=== PATIENT | male | born 1980 | race Caucasian/White ===

== ENCOUNTER 2023-05-15 10:49 | Emergency (ER) | payer OTHER ==
[~2023-05-15] VITALS: Ht 170.2 cm; Wt 86.2 kg
[2023-05-15 11:00] VITALS: BP_SYST 116; PULSE 96; RESP 20; TEMP 98; O2SAT 100
[2023-05-15] MEDS ORDERED: IBUPROFEN 600 MG TABLET PO ONE (11:00)
[2023-05-15] MEDS ORDERED: HYDROcodone/ACETAMIN 10-325 MG TAB PO ONE (11:00)
[2023-05-15] MEDS ORDERED: LIDOCAINE 1%, 20 ML MDV 20 ML ONE ×2 (11:30→11:31)
[2023-05-15] MEDS ORDERED: LIDOCAINE 1% 10 MG/ML, 20 ML MDV INJ ONE (11:30)
[2023-05-15] MEDS ORDERED: ONDANSETRON HCL 4 MG/2 ML VIAL ONE (12:48)
[2023-05-15] MEDS ORDERED: BACITRACIN 1 GM OINT TP ONE ×2 (13:27→13:30)
[2023-05-15] MEDS ORDERED: DIPHTH,PERTUSS(ACELL),TET VAC 0.5 ML VIAL (Tdap) I.M. ONE (13:45)
[2023-05-15] MEDS ORDERED: cephALEXin 500 MG CAPSULE PO ONE (13:45)
[2023-05-15] MEDS ORDERED: CEPH-548 PO (13:47)
[2023-05-15] MEDS ORDERED: IBUP-1969 PO (13:47)
[2023-05-15] MEDS ORDERED: PERC10 PO (13:47)
[2023-05-15 14:28] VITALS: BP_SYST 116; PULSE 96; RESP 20; TEMP 98; O2SAT 100
== END 2023-05-15 14:29 | disposition home or self-care (01) ==
LOC: SED 10:49
DX: S61.216A Laceration without foreign body of right little finger without damage to nail, initial encounter (principal); I10 Essential (primary) hypertension; Z79.899 Other long term (current) drug therapy; W24.0XXA Contact with lifting devices, not elsewhere classified, initial encounter; Y93.89 Activity, other specified; Y92.89 Other specified places as the place of occurrence of the external cause; Y99.8 Other external cause status
CPT/HCPCS: 11760; 99285; 73140; 90715; 90471; J2001; J2405